=== PATIENT | male | born 1995 | race Caucasian/White ===

== ENCOUNTER 2022-04-21 08:34 | Emergency (ER) | payer MEDICAID, SELFPAY ==
[2022-04-21 08:38] VITALS: BP 131/67; PULSE 67; RESP 18; TEMP 36.6; O2SAT 98; BMI 20.9
[2022-04-21] MEDS: cefTRIAXone sodium 500 MG, Lidocaine HCl 1 % MPF 1 ML IM (09:10)
--- NOTE | 2022-04-21 09:13 | ED_ITS ---
HPI - Male Genitourinary General Chief complaint: Urogenital-Male Stated complaint: possible std Time Seen by Provider: 04/21/22 09:10 Source: patient Mode of arrival: ambulatory Limitations: no limitations History of Present Illness HPI Narrative: This is a 27-year-old male who is previously healthy who presents for testing and treatment for gonorrhea. Patient reports his sexual partner tested positive and he is here to be treated as well. He is asymptomatic. Related Data Previous Rx's Medication Instructions Recorded doxycycline monohydrate 100 mg 100 mg PO BID #14 caps 04/21/22 capsule Allergies Allergy/AdvReac Type Severity Reaction Status Date / Time No Known Allergies Allergy Unverified 03/11/20 19:46 Review of Systems Review of Systems: Yes all other systems are reviewed and are negative Constitutional: Constitutional: Reports no additional constitutional complaints, Denies body ache(s), Denies chills, Denies fever(s), Denies headache(s) and Denies weakness Eyes: Eyes: Reports no additional eye complaints and Denies change in vision ENT: Reports system reviewed and no additional complaints, except as documented, Denies dizziness, Denies headache(s), Denies nasal congestion, Denies nasal discharge and Denies neck pain Cardiovascular: Cardiovascular: Reports no additional cardiovascular complaints, Denies chest pain, Denies leg edema and Denies dyspnea Respiratory: Respiratory: Reports no additional respiratory complaints, Denies cough and Denies dyspnea Gastrointestinal: Gastrointestinal: Reports no additional gastrointestinal complaints, Denies abdominal pain, Denies diarrhea, Denies nausea and Denies vomiting Genitourinary: Genitourinary: Denies hematuria, Denies dysuria, Denies penile discharge, Denies testicular pain and Denies urinary incontinence Musculoskeletal: Musculoskeletal: Reports no additional musculoskeletal complaints, Denies back pain, Denies arthralgias, Denies joint swelling, Denies neck pain, Denies numbness and Denies tingling Integumentary/Breasts: Skin/Breast: Reports system reviewed and no additional complaints, except as docu and Denies rash Neurologic: Reports system reviewed and no additional complaints, except as documented, Denies dizziness, Denies headache(s), Denies numbness, Denies tingling and Denies weakness PMF Past Medical History Attestation statement: The following information was validated with the patient. Source: old records reviewed and nursing notes reviewed Social History Social History Advance Directives: No Advance Directives Information Provided: No Physical Exam Vital Signs: Vital Signs: Last Vital Signs Temp 98 F 04/21/22 08:38 Pulse 67 04/21/22 08:38 Resp 18 04/21/22 08:38 BP 131/67 04/21/22 08:38 Pulse Ox 98 04/21/22 08:38 O2 Del Method 04/21/22 08:38 BMI result Body Mass Index 20.9 Const: General: cooperative, healthy appearing, comfortable and no acute distress Orientation/consciousness: patient oriented x3 Limitations: no limitations HEENT: Head: Yes normal to inspection Eyes: General: appearance normal, both eyes and all related structures Neck: Neck: Yes normal visual inspection Resp: Effort & Inspection: normal respiratory effort : Other: Deferred by patient Skin: General skin exam: no rashes or lesions noted Neuro: General: patient oriented x3 and moves all extremities Cognition (Neuro): normal cognition Gait exam (Neuro): Normal gait present MDM - Male Genitourinary MDM Narrative Medical decision making narrative: 27-year-old male here seeking treatment and testing for gonorrhea as his sexual partner is positive. He is asymptomatic. Will send testing for gonorrhea and chlamydia Patient will be treated prophylactically with ceftriaxone 500 mg IM and doxycycline for 7 days. Reviewed safe sex practices. Retesting of positive in 7 days. Reviewed worrisome signs and symptoms of when to return to the emergency room. Comfortable plan for discharge home. Medical Records Attestation: I reviewed the patient's medical records. Lab Data Attestation: I reviewed the patient's lab results. Discharge Plan Discharge Clinical Impression: Concern about STD in male without diagnosis Patient Disposition: Home, Self-Care Instructions: Sexually Transmitted Diseases (ED) Additional Instructions: Your partner tested positive for gonorrhea We are treating you prophylactically Abstain from unprotected sex for 7 days Get retested at [facility] You will be notified by phone in 1-2 days if your results are positive Prescriptions: New doxycycline monohydrate 100 mg capsule 100 mg PO BID Qty: 14 0RF Referrals: Physician,Unknown J [Primary Care Provider] -
[2022-04-21 10:51] LABS: CT PCR DETECTED (Not Detect.); NG PCR DETECTED (Not Detect.)
== END 2022-04-21 09:53 | disposition home or self-care (01) ==
PROVIDERS: Emergency Provider Emergency Medicine
DX: Z20.2 Contact with and (suspected) exposure to infections with a predominantly sexual mode of transmission (principal); Z79.899 Other long term (current) drug therapy
CPT/HCPCS: 87491; 87591; 96372; 99283; 99284; J0696

== ENCOUNTER 2023-05-03 12:13 | Emergency (ER) | payer OTHER, SELFPAY ==
--- NOTE | ~2023-05-03 | XR_ITS ---
EXAMINATION: XR CHEST CLINICAL INFORMATION: Pneumonia COMPARISON: None available. TECHNIQUE: Frontal view of the chest was obtained. FINDINGS: No significant abnormality is noted involving the heart, lungs, mediastinum, bony thorax or soft tissues. XR/XR chest 1V IMPRESSION: Unremarkable examination.
[2023-05-03 12:21] VITALS: BP 133/63; PULSE 93; RESP 24; TEMP 36.8; O2SAT 100; BMI 21.6
--- NOTE | 2023-05-03 12:24 | ED.URI ---
HPI - URI/Sore Throat General Chief Complaint: Upper Respiratory Symptoms Stated Complaint: Difficulty breathing Time Seen by Provider: 05/03/23 12:52 Source: patient Mode of arrival: ambulatory Limitations: no limitations History of Present Illness HPI Narrative: Patient is a 28-year-old male presenting to the emergency department with complaint of cough productive clear/white sputum and shortness of breath since 4:00 a.m. today. Also complains of sore throat related to coughing, generalized body aches. Is unsure if he has fevers, denies sweats/chills. Initially stated in triage that he had vomiting this morning, however clarified that this was coughing up sputum. Denies any vomiting or diarrhea, abdominal pain. Has not taken any [id number] medications for his symptoms. Denies history of asthma. MD elicited complaint: cough Onset (ago): hour(s) Consistency: constant Severity: moderate Description of mucous: clear Able to tolerate fluids by mouth: Yes Relieving factors: nothing Associated symptoms: myalgias and sore throat Treatments prior to arrival: none Related Data Previous Rx's Medication Instructions Recorded doxycycline monohydrate 100 mg 100 mg PO BID #14 caps 04/21/22 capsule albuterol sulfate 90 mcg/actuation 2 puff inhalation Q4-6H PRN 05/03/23 aerosol inhaler shortness of breath or wheezing #6.7 grams benzonatate 100 mg capsule 100 mg PO TID PRN cough #20 caps 05/03/23 Allergies Allergy/AdvReac Type Severity Reaction Status Date / Time Latex, Natural Rubber Allergy Intermediate Rash Verified 05/03/23 12:21 Review of Systems Review of Systems: As per HPI. Yes all other systems are reviewed and are negative Constitutional: Constitutional: Reports as per HPI [facility] Social History Social History Advance Directives: No Physical Exam Vital Signs: Vital Signs: Last Vital Signs Temp 98.2 F 05/03/23 12:21 Pulse 93 05/03/23 12:21 Resp 16 05/03/23 15:21 BP 133/63 05/03/23 12:21 Pulse Ox 100 05/03/23 12:21 O2 Del Method Room Air 05/03/23 12:21 BMI result Body Mass Index 21.6 Vital signs have been reviewed and appear to be correct. Blood pressure normal. Heart rate normal. Respiratory rate normal. Temperature normal. Oxygen saturation normal. Const: General: cooperative, healthy appearing and no acute distress Orientation/consciousness: oriented to person, oriented to place, oriented to time and patient oriented x3 Limitations: no limitations HEENT: Head: Yes normocephalic and Yes atraumatic Ears: external ears normal General nose exam: Normal external nose present Face and sinus: Yes face symmetric Mouth: oropharynx normal and moist mucous membranes Throat: Yes uvula midline Eyes: Pupils: Equal, round and reactive pupils present Neck: Neck: Yes normal visual inspection and Yes supple Resp: Effort & Inspection: normal respiratory effort and able to speak in complete sentences Auscultation: clear to auscultation bilaterally and wheezes scattered wheezes Cardio: Rate: regular rate Rhythm: regular rhythm Heart sounds: S1 normal heart sound present and S2 normal heart sound present GI: Palpation (GI): Soft to palpation and nontender Auscultation: normoactive bowel sounds : General: Yes no CVA tenderness Back/Spine/Pelvis: Back: no CVA tenderness Skin: General skin exam: elasticity normal and turgor normal Neuro: General: oriented to person, oriented to place, oriented to time, patient oriented x3, moves all extremities, no focal motor deficits and CN's II-XI intact bilaterally Cranial nerves: Yes Equal, round and reactive pupils present Cognition (Neuro): normal cognition Extrem: General: Yes full ROM, Yes no pedal edema and Yes no calf tenderness Psych: Mental Status: mental status grossly normal Affect: normal affect Thought process: Normal thought process present Course Course Course Narrative: RME: 28 yold male presents to the ED for coughing, sore throat, chest tigness, and bodyaches. VItal signs stable. covid, RSV, and chest xray ordered. Medical Decision Making Medical Decision Making MDM Narrative: Patient is a 28-year-old male presenting to the emergency department with complaint of cough productive clear/white sputum and shortness of breath since 4:00 a.m. today. On exam patient is awake, A+Ox3, VS WNL, afebrile, normal neurological exam without focal deficits, physical exam findings as above. Given reported symptoms and physical exam findings, initial differential includes viral illness, COVID, flu, strep pharyngitis. Swabs for COVID, flu, strep all negative, no acute findings on chest x-ray. Patient updated on results and all questions answered. Will discharge patient home with benzonatate and albuterol inhaler. Instructed patient to follow-up with primary care provider this week. Return precautions discussed at bedside. Patient verbalized understanding of and agreement with plan. Differential Diagnosis Differential Diagnoses: The differential diagnosis associated with the presentation includes As per [facility]. Lab Data [facility] Lab Attestation statement: I reviewed the patient's lab results. As per [facility]. Labs: Lab Results 05/03/23 Range/Units 12:36 COVID-19 (JESIKA) Negative (Negative) COVID-19 Clin Com See Note Influenza Type A (MARITA) Negative (Negative) Influenza Type B (MARITA) Negative (Negative) Influenza A & B Note See Note S. pyogenes GrpA MARITA Negative (Negative) Independent Interpretation I performed an independent interpretation of an: Plain X-Ray Interpretation: No acute abnormalities and chest x-ray Radiology Impression Discussion of test interpretation with radiology: I have reviewed the radiologist's reading. Radiologist Impression: XR/XR chest 1V IMPRESSION: Unremarkable examination. External Record Review External record reviewed: Inpatient record, Office record and Outpatient record Prescription Management I considered prescription management with: Other Discharge Plan Discharge Clinical Impression: Upper respiratory infection, Viral infection Patient Disposition: Home, Self-Care Instructions: Upper Respiratory Infection (DC), Viral Syndrome (ED) Additional Instructions: You were evaluated in the emergency department today for shortness of breath and cough. Your Covid, flu, and strep tests were all negative. Your chest x-ray did not show evidence of pneumonia. Your symptoms are likely related to a viral illness which will resolve on its own with time and rest. You should ensure adequate fluid intake, and can use Tylenol 650 mg or ibuprofen 600 mg every 6 hours as needed for fever or discomfort. Please follow-up with your primary care provider this week. Return to the emergency department if you develop chest pain, worsening shortness of breath, difficulty swallowing, fever 100.4? F or greater or any other concerning symptoms. Prescriptions: New benzonatate 100 mg capsule 100 mg PO TID PRN (Reason: cough) Qty: 20 0RF albuterol sulfate 90 mcg/actuation HFA aerosol inhaler 2 puff inhalation Q4-6H PRN (Reason: shortness of breath or wheezing) Qty: 6.7 0RF No Action doxycycline monohydrate 100 mg capsule 100 mg PO BID Qty: 14 0RF Stand Alone Forms: Work/School Release Interventions: ED Discharge Assessment Last Done: 05/03/23 15:22 Discharge Date/Time: 05/03/23 15:22
[2023-05-03 13:04] LABS: IDNOW Serial# 08D9AD1C; Strep A Nucleic Acid Negative (Negative)
[2023-05-03 13:25] LABS: IDNOW Serial# 9DB6401D; Influenza A Negative (Negative); Influenza B2 Negative (Negative)
[2023-05-03 13:26] LABS: COVID-19 Test Negative (Negative); IDNOW Serial# BCCEAD1C
[2023-05-03 15:21] VITALS: RESP 16
== END 2023-05-03 15:22 | disposition home or self-care (01) ==
PROVIDERS: Physician Assistant; Emergency Provider Student in an Organized Health Care Education/Training Program
DX: J06.9 Acute upper respiratory infection, unspecified (principal); B34.9 Viral infection, unspecified; J02.9 Acute pharyngitis, unspecified; R05.9 Cough, unspecified; R06.02 Shortness of breath; Z11.52 Encounter for screening for COVID-19
CPT/HCPCS: 71045; 87502; 87635; 87651; 99282; 99283

== ENCOUNTER 2023-09-02 11:35 | Emergency (ER) | payer OTHER, SELFPAY ==
--- NOTE | ~2023-09-02 | US_ITS ---
EXAMINATION: US SCROTUM US SCROTUM DOPPLER CLINICAL INFORMATION: Right testicular pain. Evaluate for testicular torsion.. COMPARISON: None available. TECHNIQUE: A sonogram of the scrotum was performed assessing lopez-scale appearance and color Doppler flow. Spectral Doppler analysis of the arterial and venous flow were performed in the testes bilaterally. FINDINGS: RIGHT: Right testicle measures 4.0 x 1.6 x 3.2 cm, volume 10.6 mL. The testicular parenchyma is mildly heterogeneous. No focal testicular parenchymal lesions are visualized. Spectral Doppler analysis of the arterial and venous flow is normal in the right testis. Right epididymal head is normal in size. No significant right hydrocele or varicocele is seen. There is no evidence of increased vascularity in the epididymis. LEFT: Left testicle measures 4.0 x 1.3 x 3.3 cm, volume 8.7 mL. Testicular parenchyma is somewhat heterogeneous. As best seen on the cine images there is an irregular area of hypoechoic echogenicity measuring 1 cm in the testicle posteriorly. No internal vascularity is noted in the region. Spectral Doppler analysis of the arterial and venous flow is normal in the left testis. Left epididymal head is normal in size. No significant left hydrocele or varicocele is seen. There is no evidence of increased vascularity in the epididymis. US/US scrotum doppler IMPRESSION: No evidence of active testicular torsion at this time. No sonographic evidence of acute epididymoorchitis. Mild heterogeneity of the testicular parenchyma is nonspecific. More focal irregular area of hypoechoic echogenicity in the left testicle is nonspecific. The findings could reflect sequela of prior inflammation or infection however neoplastic process cannot be completely excluded. Consider urology consultation. Correlation with MRI would be helpful for further evaluation. Findings were discussed with GERALDO Santoro on 09/02/2023 at 3:27 PM.
[2023-09-02 12:12] VITALS: BP 118/90; PULSE 59; RESP 18; TEMP 36.6; O2SAT 98
--- NOTE | 2023-09-02 12:14 | ED.MALEGU ---
HPI - Male Genitourinary General Chief complaint: Urogenital-Male Stated complaint: confidential Related Data Previous Rx's Medication Instructions Recorded doxycycline monohydrate 100 mg 100 mg PO BID #14 caps 04/21/22 capsule albuterol sulfate 90 mcg/actuation 2 puff inhalation Q4-6H PRN 05/03/23 aerosol inhaler shortness of breath or wheezing #6.7 grams benzonatate 100 mg capsule 100 mg PO TID PRN cough #20 caps 05/03/23 Allergies Allergy/AdvReac Type Severity Reaction Status Date / Time Latex, Natural Rubber Allergy Intermediate Rash Verified 09/02/23 12:12 [facility] Social History Social History Advance Directives: No Advance Directives Information Provided: No Physical Exam Vital Signs: Vital Signs: Last Vital Signs Temp 98 F 09/02/23 12:12 Pulse 59 09/02/23 12:12 Resp 18 09/02/23 12:12 BP 118/90 H 09/02/23 12:12 Pulse Ox 98 09/02/23 12:12 O2 Del Method Room Air 09/02/23 12:12 BMI result Body Mass Index 20.0 Course Course Course Narrative: This is a rapid medical exam. Defer additional HPI, ROS, PE to primary provider. 28-year-old male with no known medical problems here with complaints of right testicular pain, recent unprotected sex with concern for STI. Will send UA, CTNG and obtain testicular ultrasound Vitals are stable Reevaluation(s) Reevaluation #1: Call from radiology with abnormal US results. See report. Patient left without completing treatment. Attempted call (see call log) Medical Decision Making Lab Data Labs: Lab Results 09/02/23 Range/Units 12:55 Urine Color Yellow Urine Appearance Hazy Urine pH 6.0 (5.0-9.0) Ur Specific [place] >= 1.030 H (1.005-1.025) Urine Protein Negative (Neg-Trace) mg/dL Urine Glucose (UA) Negative (Negative) mg/dL Urine Ketones Negative (Negative) mg/dL Urine Blood Small (1+) H (Negative) Urine Nitrite Negative (Negative) Ur Leukocyte Esterase Negative (Negative) Urine RBC 3-5 H (0-2) /HPF Urine WBC 0-5 (0-5) /HPF Ur Squamous Epith Cells 0-2 (0-2) /HPF Urine Bacteria None Seen (None Seen) Hyaline Casts 0-2 (0-2) /LPF Chlam trachomat DNA PCR DETECTED A (Not Detect.) N.gonorrhoeae DNA (PCR) DETECTED A (Not Detect.) Discharge Plan Discharge Clinical Impression: Pain in testicle Patient Disposition: Left W/O Completing Treatment Prescriptions: No Action doxycycline monohydrate 100 mg capsule 100 mg PO BID Qty: 14 0RF benzonatate 100 mg capsule 100 mg PO TID PRN (Reason: cough) Qty: 20 0RF albuterol sulfate 90 mcg/actuation HFA aerosol inhaler 2 puff inhalation Q4-6H PRN (Reason: shortness of breath or wheezing) Qty: 6.7 0RF Discharge Date/Time: 09/02/23 15:02
[2023-09-02 13:04] LABS: Appearance Urine Hazy; Color Urine Yellow; Glucose Urine UA Negative (Negative); Leukocyte Esterase Urine Negative (Negative); Nitrite Urine Negative (Negative); Specific Gravity - Urine >= 1.030 (1.005-1.025); UMIC TRIGGER UACC YES; Urine Blood Small (1+) (Negative); Urine Ketones Negative (Negative); Urine Protein Negative (Neg-Trace)
[2023-09-02 13:17] LABS: WBC Urine 0-5 /HPF (0-5)
[2023-09-02 13:18] LABS: Bacteria Urine None Seen (None Seen); Hyaline Casts Urine 0-2 /LPF (0-2); Squamous Epithelial Cell Urine 0-2 /HPF (0-2)
[2023-09-02 16:02] LABS: CT PCR DETECTED (Not Detect.); NG PCR DETECTED (Not Detect.)
== END 2023-09-02 15:02 | disposition left against medical advice (07) ==
PROVIDERS: Nurse Practitioner Family; Emergency Provider Emergency Medicine
DX: N50.811 Right testicular pain (principal); N50.812 Left testicular pain; R60.0 Localized edema; R10.2 Pelvic and perineal pain; Z20.2 Contact with and (suspected) exposure to infections with a predominantly sexual mode of transmission
CPT/HCPCS: 0353U; 76870; 81001; 93975; 99282; 99284

== ENCOUNTER 2023-09-03 12:27 | Emergency (ER) | payer OTHER, SELFPAY ==
--- NOTE | 2023-09-03 13:06 | ED.GENADULT ---
HPI - General Adult General Chief complaint: Urogenital-Male Stated complaint: personal Time Seen by Provider: 09/03/23 13:04 Source: patient Mode of arrival: ambulatory Limitations: no limitations History of Present Illness HPI narrative: Patient is a 28 year old assigned male at with no reported medical history presenting to the emergency department today requesting STI testing. Patient states that him and his partner broke up, both had sex with others, and now wants to be tested and treated for possible STD. Patient denies any dizziness, lightheadedness, abdominal pain, nausea, vomiting, fever, chills, blurry vision, double vision, loss of vision, chest pain, difficulty breathing, shortness of breath, back pain, night sweats, pain with urination, increased urinary frequency, increased urinary urgency, blood in his urine or stool, syncope or a near syncopal episode, recent trauma or falls, bowel incontinence, bladder incontinence, bowel retention, bladder retention, or any other complaints at this time. Relieving factors: none Exacerbating factors: none Associated symptoms: denies other symptoms Treatments prior to arrival: none Related Data Previous Rx's Medication Instructions Recorded doxycycline monohydrate 100 mg 100 mg PO BID #14 caps 04/21/22 capsule albuterol sulfate 90 mcg/actuation 2 puff inhalation Q4-6H PRN 05/03/23 aerosol inhaler shortness of breath or wheezing #6.7 grams benzonatate 100 mg capsule 100 mg PO TID PRN cough #20 caps 05/03/23 doxycycline hyclate 100 mg tablet 100 mg PO BID 7 days #14 tabs 09/03/23 Allergies Allergy/AdvReac Type Severity Reaction Status Date / Time Latex, Natural Rubber Allergy Intermediate Rash Verified 09/02/23 12:12 Review of Systems Constitutional: Constitutional: Reports no additional constitutional complaints, Denies chills, Denies fever(s) and Denies night sweats Eyes: Eyes: Reports no additional eye complaints, Denies blurry vision, Denies change in vision, Denies diplopia, Denies eye discharge, Denies loss of vision and Denies eye pain ENT: Denies dizziness Cardiovascular: Cardiovascular: Reports no additional cardiovascular complaints, Denies chest pain, Denies lightheadedness, Denies Loss of Consciousness and Denies dyspnea Respiratory: Respiratory: Reports no additional respiratory complaints and Denies dyspnea Gastrointestinal: Gastrointestinal: Reports no additional gastrointestinal complaints, Denies abdominal pain, Denies melena, Denies hematochezia, Denies change in bowel habits and Denies change in stool character Genitourinary: Genitourinary: Reports no additional male genitourinary complaints, Denies hematuria, Denies oliguria, Denies difficulty urinating, Denies dysuria, Denies urinary frequency, Denies urinary hesitancy, Denies urinary incontinence and Denies urinary urgency Musculoskeletal: Musculoskeletal: Reports no additional musculoskeletal complaints, Denies numbness and Denies tingling Neurologic: Denies dizziness, Denies loss of vision, Denies numbness and Denies tingling Psychiatric: Psychiatric: Reports no additional psychiatric complaints Endocrine: Endocrine: Reports no additional endocrine complaints Hematologic/Lymphatic: Hematologic/Lymphatic: Reports no additional hematologic/lymphatic complaints Allergic/Immunologic: Allergic/Immunologic: Reports no additional allergic/immunologic complaints PMFSH Past Medical History Attestation statement: The following information was validated with the patient. Source: old records reviewed and nursing notes reviewed Social History Social History Smoked in Last 30 Days: Yes Use of substances other than those prescribed or required for medical reasons: No Advance Directives: No Advance Directives Information Provided: No Physical Exam ED Vital Signs: Vital Signs - 24 hr 09/03/23 13:24 Temperature 97.6 F Pulse Rate 67 Respiratory Rate 16 Blood Pressure 133/94 H Pulse Oximetry 99 Oxygen Delivery Method Room Air BMI result Body Mass Index 20.6 Const General: cooperative, no acute distress, alert and awake Nutritional Appearance: well nourished Orientation/consciousness: patient oriented x3 Limitations: no limitations [facility] Head: Yes normal to inspection and Yes atraumatic Ears: hearing grossly normal bilaterally and external ears normal General nose exam: Normal external nose present, no nasal discharge noted and no epistaxis Face and sinus: Yes normal facial exam, No abrasion and No laceration Mouth: Normal oral and palatal mucosa present, no drooling and no muffled voice Eyes General: appearance normal, both eyes and all related structures Periorbital: periorbital findings normal Eyelids: Yes eyelids normal Conjunctivae: conjunctivae normal Pupils: Equal, round and reactive pupils present EOM: EOMs intact bilaterally Neck Neck: Yes normal visual inspection, Yes full ROM and Yes no lymphadenopathy Chest Chest palpation & inspection: normal inspection of the chest Resp Effort & Inspection: normal respiratory effort and able to speak in complete sentences GI Inspection: Yes normal to inspection Neuro General: patient oriented x3 and moves all extremities Cranial nerves: Yes Equal, round and reactive pupils present Cognition (Neuro): normal cognition Motor exam (neuro): 5/5 motor strength present throughout Sensory Exam: Normal double simultaneous stimulation for sensation Coordination: [id number] test normal Extrem General: Yes normal to inspection, Yes full ROM and Yes capillary refill normal Psych Appearance: grossly normal Mental Status: mental status grossly normal Affect: normal affect Attitude: cooperative Thought process: Normal thought process present Thought content: Normal thought content present Insight: Good insight present (Psych) Medications Administered Discontinued Medications Generic Name Dose Route Start Last Admin Trade Name Marcela PRN Reason Stop Dose Admin Ceftriaxone Sodium 500 mg/ 0 mg 09/03/23 13:18 09/03/23 13:57 Lidocaine HCl 1 ml IM 09/03/23 13:19 1 kit ONCE ONE Administration Medical Decision Making Medical Decision Making MDM Narrative: Patient is a 28 year old assigned male at with no reported medical history presenting to the emergency department today for STI treatment and STI testing. Patient's physical exam was unremarkable. Patient's urine CTNG is pending. I explained my physical exam findings to the patient. I answered all questions asked by the patient. I stressed the importance of the patient taking his medication as prescribed. I stressed the importance of the patient following up with his primary care provider. I stressed the importance of the patient returning to the emergency department immediately if his symptoms were to worsen or if he were to develop any dizziness, shortness of breath, difficulty breathing, chest pain, blurry vision, loss of vision, nausea, vomiting, abdominal pain, fever, chills, back pain, or any other complaints. Patient verbalized agreement and understanding with this treatment plan and discharge. Differential Diagnosis Differential Diagnoses: The differential diagnosis associated with the presentation includes STD testing STI testing Chlamydia Gonorrhea Admission/Observation Consideration of admission/observation: Escalation of care including admission/observation considered Patient would have been admitted to the hospital had his clinical presentation warranted hospital admission. Prescription Management I considered prescription management with: Antibiotic (patient prescribed prophylactic STI antibiotic) Discharge Plan Discharge Clinical Impression: Exposure to STD Patient Disposition: Home, Self-Care Instructions: Sexually Transmitted Diseases (ED), Male Condom Use (ED), Safe Sex Practices (ED) Additional Instructions: We will call you if your results are positive. Follow up with your primary care provider. Return to the emergency department immediately if your symptoms worsen or if you develop any dizziness, shortness of breath, difficulty breathing, chest pain, blurry vision, loss of vision, nausea, vomiting, abdominal pain, fever, chills, back pain, or any other complaints. Prescriptions: New doxycycline hyclate 100 mg tablet 100 mg PO BID 7 Days Qty: 14 0RF No Action doxycycline monohydrate 100 mg capsule 100 mg PO BID Qty: 14 0RF benzonatate 100 mg capsule 100 mg PO TID PRN (Reason: cough) Qty: 20 0RF albuterol sulfate 90 mcg/actuation HFA aerosol inhaler 2 puff inhalation Q4-6H PRN (Reason: shortness of breath or wheezing) Qty: 6.7 0RF Referrals: [facility] [place] Family Medicine [Provider Group] (Call to establish and follow up with a primary care provider. If you already have a primary care provider, please follow up with them.) [facility] [place] [facility] [Provider Group] (Call to establish and follow up with a primary care provider. If you already have a primary care provider, please follow up with them.) [facility] [place] [facility] [Provider Group] (Call to establish and follow up with a primary care provider. If you already have a primary care provider, please follow up with them.) Stand Alone Forms: Work/School Release Interventions: ED Discharge Assessment Last Done: 09/03/23 14:08 Discharge Date/Time: 09/03/23 14:08 Print Language: Hungarian
[2023-09-03 13:24] VITALS: BP 133/94; PULSE 67; RESP 16; TEMP 36.4; O2SAT 99; BMI 20.6
[2023-09-03] MEDS: cefTRIAXone sodium 500 MG, Lidocaine HCl 1 % MPF 1 ML IM (13:57)
[2023-09-03 16:35] LABS: CT PCR DETECTED (Not Detect.); NG PCR DETECTED (Not Detect.)
== END 2023-09-03 14:08 | disposition home or self-care (01) ==
PROVIDERS: Physician Assistant Medical; Emergency Provider Emergency Medicine
DX: A54.9 Gonococcal infection, unspecified (principal); A74.9 Chlamydial infection, unspecified
CPT/HCPCS: 0353U; 96372; 99284; J0696

== ENCOUNTER 2023-11-01 14:31 | Outpatient (AMB) | payer OTHER, SELFPAY ==
--- NOTE | 2023-11-01 15:08 | MHC.OFFVIS ---
Intake Visit Reasons: testicular lump- ER f/u Intake Note: Patient is Present for ER Follow Up Urology Medication: None Antibiotic Allergies:None Blood Thinners: None Allergies Latex, Natural Rubber Allergy (Intermediate, Verified 11/01/23 15:11) Rash HPI Comments Details: Morgan is a very pleasant 28-year-old male patient who was accompanied by significant other at today's office visit. He has a past medical history of recurrent STDs. He presents to the office today as a new patient for follow-up of his recent ER visit. In discussion with the patient today he reports a longstanding history of STDs and discusses having swelling and pain in scrotum and testicles when he experiences STDs such as gonorrhea and chlamydia. He reports having seeked emergency room care approximately 2 months ago as he had had unprotected sex and felt he had exposed himself to an STD. It appears a scrotal ultrasound was ordered and performed and recommendations were made for urology referral for further assessment evaluation. These results reviewed with the patient today. No evidence of active testicular torsion. No sonographic evidence of acute epididymo-orchitis. Findings could reflect sequela of prior inflammation or infection however neoplastic process can not be completely excluded. In assessment of the patient today no pain elicited on exam. No lesions, lumps, and or open areas noted to the penis, scrotum, and or testicles. Patient reports having completed antibiotic therapy as prescribed by ER physician. He currently denies any bothersome urinary issues or concerns. He denies urinary urgency, urinary frequency, incontinence, nocturia, hematuria, dysuria, foul smelling urine, changes to urinary stream, flank pain, fever, and or chills. He is happy with his current voiding parameters. In office urinalysis results reviewed with the patient today. Discussed at length STD prevention. He otherwise offers no other issues or concerns at this time. Review of Systems Const All systems reviewed & are unremarkable except as noted in HPI and below Physical Exam Const General: cooperative, healthy appearing, comfortable, no acute distress, well developed, alert and awake Nutritional Appearance: average body habitus Orientation/consciousness: patient oriented x3 Limitations: no limitations HEENT Head: Yes normal to inspection, Yes normocephalic and Yes atraumatic Ears: hearing grossly normal bilaterally Eyes General: appearance normal, both eyes and all related structures Neck Neck: Yes normal visual inspection and Yes trachea midline Chest Chest palpation & inspection: normal inspection of the chest Resp Effort & Inspection: normal respiratory effort and able to speak in complete sentences Cardio Rate: regular rate GI Inspection: Yes normal to inspection General: Yes no CVA tenderness Penis: normal penis Meatus: meatus normal Scrotum: scrotum normal Testes: Testes normal Back/Spine/Pelvis Back: no CVA tenderness Skin General skin exam: no rashes or lesions noted Neuro General: patient oriented x3 Extrem General: Yes normal to inspection Psych Appearance: grossly normal and well kempt Mental Status: mental status grossly normal Speech and movement: Normal speech and movement present and Clear speech present Affect: normal affect Attitude: cooperative Thought process: Normal thought process present Thought content: Normal thought content present Insight: Fair insight present (Psych) Judgement: Fair judgement present (Psych) Results AMB Urinalysis, Automated UA Leukoctes 0 Giorgio/uL Last Edit by Catrachita Sawyer [facility] on 11/01/23 15:20 UA Nitrite Negative Last Edit by Catrachita Sawyer [facility] on 11/01/23 15:20 UA Urobilinogen 0.2 mg/dL Last Edit by Catrachita Sawyer [facility] on 11/01/23 15:20 UA Protein 0 mg/dL Last Edit by Catrachita Sawyer aGla on 11/01/23 15:20 UA pH 6.0 Last Edit by Catrachita Sawyer [facility] on 11/01/23 15:20 UA Blood 0 Kavon/uL Last Edit by Catrachita Sawyer [facility] on 11/01/23 15:20 UA Specific [place] 1.010 Last Edit by LAURA Araya on 11/01/23 15:20 UA Ketone Negative Last Edit by Catrachita Sawyer [facility] on 11/01/23 15:20 UA Bilirubin 0 mg/dL Last Edit by Catrachita Saweyr [facility] on 11/01/23 15:20 UA Glucose 0 mg/dL Last Edit by Catrachita Sawyer [facility] on 11/01/23 15:20 Results Reviewed Results Reviewed: Laboratory Last Values Urine pH (Auto) 6.0 11/01/23 15:19 Specific [place] (Auto) 1.010 11/01/23 15:19 Urine Protein (Auto) 0 mg/dL 11/01/23 15:19 Glucose (UA)(Auto) 0 mg/dL 11/01/23 15:19 Urine Ketones (Auto) Negative 11/01/23 15:19 Urine Blood (Auto) 0 Kavon/uL 11/01/23 15:19 Urine Nitrite (Auto) Negative 11/01/23 15:19 Urine Bilirubin (Auto) 0 mg/dL 11/01/23 15:19 Urine Urobilinogen (Auto) 0.2 mg/dL 11/01/23 15:19 Leukocyte Esterase (Auto) 0 Giorgio/uL 11/01/23 15:19 Date of Service: 09/02/23 EXAMINATION: US SCROTUM US SCROTUM DOPPLER FINDINGS: RIGHT: Right testicle measures 4.0 x 1.6 x 3.2 cm, volume 10.6 mL. The testicular parenchyma is mildly heterogeneous. No focal testicular parenchymal lesions are visualized. Spectral Doppler analysis of the arterial and venous flow is normal in the right testis. Right epididymal head is normal in size. No significant right hydrocele or varicocele is seen. There is no evidence of increased vascularity in the epididymis. LEFT: Left testicle measures 4.0 x 1.3 x 3.3 cm, volume 8.7 mL. Testicular parenchyma is somewhat heterogeneous. As best seen on the cine images there is an irregular area of hypoechoic echogenicity measuring 1 cm in the testicle posteriorly. No internal vascularity is noted in the region. Spectral Doppler analysis of the arterial and venous flow is normal in the left testis. Left epididymal head is normal in size. No significant left hydrocele or varicocele is seen. There is no evidence of increased vascularity in the epididymis. IMPRESSION: No evidence of active testicular torsion at this time. No sonographic evidence of acute epididymoorchitis. Mild heterogeneity of the testicular parenchyma is nonspecific. More focal irregular area of hypoechoic echogenicity in the left testicle is nonspecific. The findings could reflect sequela of prior inflammation or infection however neoplastic process cannot be completely excluded. Consider urology consultation. Correlation with MRI would be helpful for further evaluation. Assessment & Plan Assessment & Plan (1) Scrotal cyst: Code(s): L72.9 - Follicular cyst of the skin and subcutaneous tissue, unspecified Category: Medical Plan In office urinalysis results reviewed with the patient today; as noted above. Recent scrotal ultrasound results; reviewed with the patient today. No abnormalities noted upon assessment of the penis, scrotum, and testicles. Discussed STD prevention at length. Will obtain scrotal ultrasound Patient currently denies any bothersome urinary issues or concerns. He reports be happy with current voiding parameters. Follow-up in 1-3 months with imaging to be completed prior; or sooner with any issues, concerns, and or questions. Orders: Orders US scrotum Today L72.9 - Follicular cyst of the skin and subcutaneous tissue, unspecified AMB Urinalysis Automated Today Z13.9 - Encounter for screening, unspecified Patient Instructions: The patient had an opportunity to ask questions regarding the treatment plan. All questions were answered. Physical exam, labs, and imaging were discussed and reviewed in detail. As well as risks, benefits, and discussion of treatment choices. No major barriers to understanding were identified. The patient expressed understanding and agreement with the above treatment plan. The patient was made aware they should contact our office by phone for worsening of their current condition, the appearance of new symptoms, or with any questions or concerns. Compliance is encouraged with any medications and follow up testing that is ordered. It is a privilege to be allowed the opportunity to participate in? your urological care.? Again, if you have any questions or concerns If you have any questions or concerns please do not hesitate to contact me. The office is [phone]. This note is constructed using voice recognition software. While every effort has been made to ensure accuracy security flex officer errors may have been included. Yours sincerely, MELLISA Catalan Coding Level of Care Code New Pt Level 3 (90722) Diagnoses Scrotal cyst L72.9
== END 2023-11-01 15:30 | disposition home or self-care (01) ==
PROVIDERS: Visit Provider Nurse Practitioner Family
DX: L72.9 Follicular cyst of the skin and subcutaneous tissue, unspecified (principal); Z13.9 Encounter for screening, unspecified
CPT/HCPCS: 99203

== ENCOUNTER → 2023-11-01 14:31 | Outpatient (BNVA) | payer OTHER, SELFPAY | PROVIDERS: Visit Provider Nurse Practitioner Family | DX: L72.9 Follicular cyst of the skin and subcutaneous tissue, unspecified (principal) | CPT/HCPCS: 81003; 99202 ==

== ENCOUNTER 2024-01-02 13:48 | Outpatient (REF) | payer OTHER, SELFPAY ==
--- NOTE | ~2024-01-02 | US_ITS ---
EXAMINATION: US SCROTUM CLINICAL INFORMATION: Cyst of the scrotum. Per director of consumer affairs statement, patient states he feels palpable lumps in the scrotum . COMPARISON: Ultrasound scrotum 09/02/2023. TECHNIQUE: A sonogram of the scrotum was performed assessing lopez-scale appearance and color Doppler flow. Spectral Doppler analysis of the arterial and venous flow were performed in the testes bilaterally. FINDINGS: RIGHT: Right testicle measures 3.7 x 2.1 x 2.3 cm, volume 9.3 mL. No focal testicular parenchymal lesions are visualized. Spectral Doppler analysis of the arterial and venous flow is normal in the right testis. The epididymis appears heterogeneous with heterogeneity, enlargement and hypervascularity most prominent in the region of the epididymal tail, possibly related to epididymitis. No right hydrocele or varicocele is seen. Right epididymal Doppler flow is increased. LEFT: Left testicle measures 3.8 x 1.7 x 2.7 cm, volume 9.0 mL. No focal testicular parenchymal lesions are visualized. Spectral Doppler analysis of the arterial and venous flow is normal in the left testis. The epididymis appears heterogeneous with heterogeneity, enlargement and hypervascularity most prominent in the region of the epididymal tail, possibly related to epididymitis. No left hydrocele or varicocele is seen. Left epididymal Doppler flow is increased. US/US scrotum IMPRESSION: Per director of consumer affairs statement, patient states he feels palpable lumps in the scrotum. The bilateral epididymides appear heterogeneous with heterogeneity, enlargement and hypervascularity most prominent in the regions of the bilateral epididymal tails. Per stove fitter, these correlate with the lump indicated by the patient. Radiologist was not in attendance. Images were later provided for interpretation. Differential considerations include possible epididymitis. Urology consultation recommended to determine further management. This study was presented to [facility] December for interpretation. PSA staff will provide results to referring provider at this time.
== END 2024-01-02 13:49 | disposition home or self-care (01) ==
LOC: HO.US 13:48
PROVIDERS: Visit Provider Nurse Practitioner Family
DX: L72.9 Follicular cyst of the skin and subcutaneous tissue, unspecified (principal)
CPT/HCPCS: 76870